=== PATIENT | female | born 1990 | race Caucasian/White ===

== ENCOUNTER 2019-07-03 10:01 | Outpatient (CLI) | payer BC ==
--- NOTE | 2019-07-03 11:00 | MMO ---
Bilateral MAMMO Bilat Diag [facility]. CLINICAL HISTORY: Patient is 29 years old and is seen for diagnostic exam and lump or thickening in the right breast at 1 o'clock. The patient has no family history of breast cancer. The patient has no personal history of cancer. VIEWS: The views performed were: bilateral craniocaudal with tomosynthesis; bilateral mediolateral oblique with tomosynthesis; and bilateral mediolateral with tomosynthesis. FILMS COMPARED: The present examination has been compared to a prior imaging study performed at [facility] on 07/03/2019. This study has been interpreted with the assistance of computer-aided detection. MAMMOGRAM FINDINGS: There are scattered fibroglandular densities. Finding 1: NO MAMMOGRAPHIC OR SONOGRAPHIC ABNORMALITIES ARE PRESENT TO CORRELATE WITH THE SITE OF PALPABLE CONCERN. Finding 2: There are benign appearing calcifications with diffuse/scattered distribution seen in both breasts. There are no suspicious masses, suspicious calcifications, or new areas of architectural distortion. IMPRESSION: FINDING 1: FINDING IN THE RIGHT BREAST IS BENIGN. NO MAMMOGRAPHIC OR SONOGRAPHIC ABNORMALITIES ARE PRESENT TO CORRELATE WITH THE SITE OF PALPABLE CONCERN. THE PATIENT WILL BE REFERRED BACK TO HER CLINICIAN FOR FURTHER CARE. BIOPSY SHOULD NOT BE PRECLUDED BY THE ABSCENCE OF IMAGING FINDINGS, IN THE SETTING OF CLINICAL CONCERN FOR MALIGNANCY. FINDING 2: CALCIFICATIONS IN BOTH BREASTS ARE BENIGN. A ROUTINE FOLLOW-UP MAMMOGRAM AT AGE 38 IS RECOMMENDED. THE RESULTS OF THIS EXAM WERE SENT TO THE PATIENT. ACR BI-RADS Category 2 - Benign finding MAMMOGRAPHY NOTE: 1. A negative mammogram report should not delay a biopsy if a dominant of clinically suspicious mass is present. 2. Approximately 10% to 15% of breast cancers are not detected by mammography. 3. Adenosis and dense breasts may obscure an underlying neoplasm. Reported by: LUKE SALGADO MD Electonically Signed: [id number]
--- NOTE | 2019-07-03 12:28 | ULT ---
DIAGNOSTIC RIGHT BREAST ULTRASOUND: INDICATION: Palpable abnormality of the 1-2 o'clock location right breast. FINDINGS: Localized real-time sonography reveals normal-appearing breast parenchyma without evidence of mass, c yst, or other localizable pathology. No mammographic mass is demonstrated on the concurrent mammogra m. IMPRESSION: BIRADS 2 - benign findings. The patient will be referred back to her clinician for further management of the area of clinical con cern. Absence of imaging findings should not defer biopsy if there is clinical suspicion for maligna ncy. The patient should return to age-appropriate mammographic screening. POS: OFF
== END 2019-07-03 10:02 | disposition home or self-care (01) ==
LOC: BICMAMMO 10:01
PROVIDERS: ATTEND Student in an Organized Health Care Education/Training Program
DX: N63.12 Unspecified lump in the right breast, upper inner quadrant (principal); R92.1 Mammographic calcification found on diagnostic imaging of breast
CPT/HCPCS: 77066; G0279